=== PATIENT | male | born 1965 | race Caucasian/White ===

== ENCOUNTER 2019-12-15 14:33 | Emergency (ER) | payer BC ==
[~2019-12-15] VITALS: Ht 177.8 cm; Wt 90.0 kg
[2019-12-15] MEDS ORDERED: KETOROLAC 15 MG/ML VIAL. IVP ONE (15:00)
[2019-12-15] MEDS ORDERED: FAMOTIDINE 20 MG/2 ML VIAL IVP ONE (15:00)
[2019-12-15] MEDS ORDERED: IV NORMAL SALINE 1,000ML 1,000 ML IV ONE (15:00)
[2019-12-15] MEDS ORDERED: ONDANSETRON PF 4 MG/2 ML VIAL. IVP ONE (15:00)
--- NOTE | 2019-12-15 15:13 | PHYS DOC ---
Past History Past Medical History: Hypertension Past Surgical History: Other Additional Past Surgical Histo: Hernia repair Smoking: Quit Greater Than 1 Year Alcohol Use: None Drug Use: None Adult General Chief Complaint Chief Complaint: ABDOMINAL PAIN HPI HPI Patient is a 54-year-old male who presented with right lower quadrant abdominal pain. The pain began as a diffuse abdominal pain last night around midnight. When he awoke this morning he states that the pain localized to his right lower quadrant. He ate a spinach salad for lunch yesterday and was not able to eat dinner he did not feel well. He also has not felt like eating today. He had 3 bowel movements earlier today that were normal for him with no blood. He had one episode of vomiting in the ED and stated that he felt a little bit better after vomiting. Denies fever, diarrhea, or constipation. He does report some rhinorrhea, sinus congestion, and cough with production of white sputum. Review of Systems Review of Systems Constitutional: Denies fever, Reports chills Eyes: Denies redness or eye pain HENT: Denies nasal congestion or sore throat, Reports rhinorrhea Respiratory: Denies shortness of breath, Reports cough productive of white sputum Cardiovascular: Denies chest pain or palpitations GI: Reports abdominal pain, nausea, and vomiting, Denies diarrhea and constipation : Denies dysuria or hematuria Musculoskeletal: Reports back pain and knee and elbow aches Integument: Denies rash or skin lesions Neurologic: Denies headache, focal weakness or sensory changes Complete systems were reviewed and found to be within normal limits, except as documented in this note. Current Medications Current Medications Current Medications Medications (Trade) Dose Ordered Sig/Rachael Start Time Stop Time Status Last Admin Dose Admin Famotidine (Pepcid Vial) 20 mg 1X ONCE 12/15/19 15:00 12/15/19 15:07 DC Iohexol (Omnipaque 300 Mg/ml) 75 ml 1X ONCE 12/15/19 15:15 12/15/19 15:16 Ketorolac Tromethamine (Toradol 15mg Vial) 15 mg 1X ONCE 12/15/19 15:00 12/15/19 15:07 DC Ondansetron HCl (Zofran) 4 mg 1X ONCE 12/15/19 15:00 12/15/19 15:07 DC Sodium Chloride 1,000 ml @ 1,000 mls/hr 1X ONCE 12/15/19 15:00 12/15/19 15:59 Allergies Allergies Allergies Coded Allergies Type Severity Reaction Last Updated Verified prochlorperazine Allergy Unknown 12/15/19 Yes Physical Exam Physical Exam Constitutional: Well developed, well nourished, no acute distress, non-toxic appearance HENT: Normocephalic, atraumatic, oropharynx moist Eyes: EOMI, conjunctiva normal, no discharge Neck: Normal range of motion, supple Cardiovascular: Tachycardic, regular rhythm Lungs & Thorax: Bilateral breath sounds clear to auscultation, no wheezing Abdomen: Soft, Tenderness to palpation of RLQ, pain felt in RLQ when palpating LLQ and periumbilical area, rebound tenderness, distention Skin: Warm, dry, no erythema, no rash Extremities: No tenderness, ROM intact, no edema Neurologic: Alert and oriented X 3, no focal deficits noted Psychologic: Affect normal, judgment normal EKG EKG [] Radiology/Procedures Radiology/Procedures CT ABD PELV W/ IV CONTRST ONLY CT study of the abdomen and pelvis with contrast Clinical indications: Right lower quadrant abdominal pain. TECHNIQUE: After IV infusion of 75 cc of Omnipaque 300, helical CT scanning of the abdomen and pelvis was performed. No GI contrast was administered. This may decrease the sensitivity to detect GI tract pathology. PQRS compliance Statement One or more of the following individualized dose reduction techniques were utilized for this study: 1. Automated exposure control 2. Adjustment of the mA and/or kV according to patient size 3. Use of iterative reconstruction technique COMPARISON: None available. FINDINGS: Diffuse fatty infiltration of the liver is seen. The spleen is not abnormally enlarged. The pancreas and gallbladder are normal. No extra hepatic biliary ductal dilatation is seen. No adrenal mass is seen. Both kidneys are normal without hydronephrosis or hydroureter. Urinary bladder wall is smooth. There is mild enlargement of prostate gland which indents the floor of the urinary bladder. The prostate gland measures about 5 cm transversely. No focal aneurysmal dilatation of the abdominal aorta is seen. No enlarged abdominal or pelvic lymphadenopathy is evident. No obstructive bowel pattern is seen. The terminal ileum is unremarkable. The appendix is distended. It measures 14 mm in thickness. There is moderate periappendiceal inflammatory change. No free fluid or abscess is seen. No free air or free fluid or is seen. No lytic process is seen. No lung base infiltrate is seen. IMPRESSION: Appendicitis. Moderate periappendiceal inflammatory change is seen. No free fluid or abscess is evident. Electronically signed by: Fernandez Smith MD (12/15/2019 3:48 PM) [id number] Course & Med Decision Making Course & Med Decision Making Pertinent Labs and Imaging studies reviewed. (See chart for details) Patient is a 54-year-old male who presented to the ED with right lower quadrant abdominal pain. Abdominal pain began as diffuse pain last night and when he woke up this morning it had localized to the right lower quadrant. CT abdomen showed appendicitis with moderate periappendiceal inflammation and no free fluid or abscess. WBCs were within normal limits. Lactic acid was 2.3. Empiric Zosyn was started. Patient last ate around 8:30 pm last night and last drank right before coming to the ED around 2:30 pm. Patient requiring admission for further evaluation and treatment. Discussed with Dr. Hathaway (hospitalist) and Dr. Eric (general surgeon) who are in agreement with admission and consultation. Dr. Eric plans to take patient directly to surgery upon arrival at [facility]. Discussed findings and plan with patient, who acknowledges understanding and agreement. Dragon Disclaimer Dragon Disclaimer This electronic medical record was generated, in whole or in part, using a voice recognition dictation system. Departure Departure: Impression: Primary Impression: Acute appendicitis Disposition: 05 TRANSFER OTHER ([facility]) Condition: GUARDED Referrals: PCP,UNKNOWN (PCP) Critical Care Time Critical care time was 30 minutes which includes time at bedside, spent in discussion of patient's care with specialists and/or family members, with interpretation of laboratory and/or radiological studies and is exclusive of procedures. Problem Qualifiers Primary Impression: Acute appendicitis Acute appendicitis type: unspecified acute appendicitis type Qualified Codes: K35.80 - Unspecified acute appendicitis AIDAN KEY DO Dec 15, 2019 15:13
[2019-12-15] MEDS ORDERED: IOHEXOL 300 MG/ML 75 ML VIAL. IV ONE (15:15)
[2019-12-15 15:19] LABS: BASO % 0 % (0-3); EOS % 1 % (0-3); HEMATOCRIT 50.1 % (39.0-53.0); HEMOGLOBIN 17.1 g/dL (13.0-17.5); LYMPH # 0.3 x10^3/uL (1.0-4.8); LYMPH % 5 % (24-48); MEAN CORPUSCULAR HEMOGLOBIN 31 pg (25-35); MEAN CORPUSCULAR HGB CONC 34 g/dL (31-37); MEAN CORPUSCULAR VOLUME 89 fL (79-100); MONO % 1 % (0-9); NEUT % 93 % (31-73); PLATELET COUNT 228 x10^3/uL (140-400); RED BLOOD COUNT 5.62 x10^6/uL (4.30-5.70); RED CELL DISTRIBUTION WIDTH 14.1 % (11.5-14.5); WHITE BLOOD COUNT 6.4 x10^3/uL (4.0-11.0)
--- NOTE | 2019-12-15 15:50 | RAD ---
CT study of the abdomen and pelvis with contrast Clinical indications: Right lower quadrant abdominal pain. TECHNIQUE: After IV infusion of 75 cc of Omnipaque 300, helical CT scanning of the abdomen and pelvis was performed. No GI contrast was administered. This may decrease the sensitivity to detect GI tract pathology. PQRS compliance Statement One or more of the following individualized dose reduction techniques were utilized for this study: 1. Automated exposure control 2. Adjustment of the mA and/or kV according to patient size 3. Use of iterative reconstruction technique COMPARISON: None available. FINDINGS: Diffuse fatty infiltration of the liver is seen. The spleen is not abnormally enlarged. The pancreas and gallbladder are normal. No extra hepatic biliary ductal dilatation is seen. No adrenal mass is seen. Both kidneys are normal without hydronephrosis or hydroureter. Urinary bladder wall is smooth. There is mild enlargement of prostate gland which indents the floor of the urinary bladder. The prostate gland measures about 5 cm transversely. No focal aneurysmal dilatation of the abdominal aorta is seen. No enlarged abdominal or pelvic lymphadenopathy is evident. No obstructive bowel pattern is seen. The terminal ileum is unremarkable. The appendix is distended. It measures 14 mm in thickness. There is moderate periappendiceal inflammatory change. No free fluid or abscess is seen. No free air or free fluid or is seen. No lytic process is seen. No lung base infiltrate is seen. IMPRESSION: Appendicitis. Moderate periappendiceal inflammatory change is seen. No free fluid or abscess is evident. Electronically signed by: Fernandez Smith MD (12/15/2019 3:48 PM) [id number]
[2019-12-15 16:12] VITALS: BP 124/84
[2019-12-15] MEDS ORDERED: PIPERACILLIN/TAZOBACTAM 3.375 GM in IV NORMAL SALINE 50ML 50 ML IV ONE (16:15)
[2019-12-15] MEDS ORDERED: PIPERACILLIN/TAZOBACTAM 3.375 GM VIAL IV ONE (16:20)
[2019-12-15] MEDS ORDERED: IV NORMAL SALINE 50ML 50 ML ONE (16:20)
[2019-12-15 16:23] LABS: CALCIUM 7.7 mg/dL (8.5-10.1); CREATININE 1.1 mg/dL (0.7-1.3); GFR 69.5; POTASSIUM 3.6 mmol/L (3.5-5.1)
[2019-12-15 16:30] LABS: ALBUMIN 3.3 g/dL (3.4-5.0); ALBUMIN/GLOBULIN RATIO 1.1 (1.0-1.7); MAGNESIUM 1.8 mg/dL (1.8-2.4); TOTAL BILIRUBIN 1.1 mg/dL (0.2-1.0); TOTAL PROTEIN 6.4 g/dL (6.4-8.2)
[2019-12-15 16:42] LABS: BILIRUBIN,URINE NEG (NEG); CLARITY,URINE CLEAR; COLOR,URINE YELLOW; GLUCOSE,URINE NEG (NEG)
[2019-12-15 16:43] LABS: BACTERIA,URINE 0 /HPF (0-FEW); NITRITE,URINE NEG (NEG); RBC,URINE OCC /HPF (0-2); SQUAMOUS EPITHELIAL CELL,UR OCC /LPF; UROBILINOGEN,URINE 0.2 mg/dL (0.2 mg/dL); WBC,URINE OCC /HPF (0-4)
== END 2019-12-15 16:40 | disposition short-term general hospital (02) ==
LOC: ER 14:33
DX: K35.80 Unspecified acute appendicitis (principal); I10 Essential (primary) hypertension; Z87.891 Personal history of nicotine dependence; Z88.8 Allergy status to other drugs, medicaments and biological substances
CPT/HCPCS: 36415; 74177; 80053; 81001; 83605; 83690; 83735; 85025; 85610; 85730; 96361; 96374; 96375; 99285; J1885; J2405; J2543; J3490; J7030